=== PATIENT | female | born 1980 | race Caucasian/White ===

== ENCOUNTER 2017-09-07 05:34 | Emergency (ER) | payer OTHER ==
[~2017-09-07] VITALS: Ht 157.5 cm; Wt 75.7 kg
[2017-09-07 07:35] LABS: Basophils # (auto) 0.1 uL; Basophils % (auto) 0.9 % (0.0-2.0); Eosinophils # (auto) 0 uL; Hematocrit 40.3 % (36.0-46.0); Hemoglobin 13.7 g/dL (12.2-16.2); Lymphocytes # (auto) 0.7 uL; Lymphocytes % (auto) 6.2 % (10.0-50.0); Mean Corpuscular Hemoglobin 29.9 pg (28.0-32.0); Mean Corpuscular Hgb Conc. 33.9 g/dL (32.0-36.0); Mean Corpuscular Volume 88.3 fL (80.0-100.0); Monocytes # (auto) 0.1 uL; Monocytes % (auto) 1.2 % (0.0-12.0); Neutrophils # (auto) 9.8 uL; Neutrophils % (auto) 91.7 % (37.0-80.0); Platelet Count (auto) 319 10^3/uL (140-450); Red Blood Cells 4.56 10^6/uL (4.0-5.20); Red Cell Distribution Width 14.4 % (11.8-14.3); White Blood Cell 10.7 10^3/uL (4.4-10.8)
[2017-09-07 07:53] LABS: INR 0.95 (0.9-1.15); Partial Thromboplastin Time 25.6 sec (22.64-33.71); Prothrombin Time 10.4 sec (9.37-12.3)
[2017-09-07 07:57] LABS: Alanine Aminotransferase 18 U/L (13-56); Albumin 3.8 g/dL (3.4-5.0); Alkaline Phosphatase 76 U/L (45-117); Amylase 40 U/L (25-115); Anion Gap 10 (5-15); Aspartate Aminotransferase 14 U/L (15-37); BUN/Creatinine Ratio 17.3; Bilirubin, Total 0.5 mg/dL (0.2-1.0); Blood Urea Nitrogen 14 mg/dL (7-18); Calcium 8.7 mg/dL (8.5-10.1); Carbon Dioxide 20 mmol/L (21-32); Chloride 109 mmol/L (98-107); GFR African American 102 mL/min; GFR Non-African American 85 mL/min; Glucose 112 mg/dL (74-106); Lipase 74 U/L (73-393); Potassium 3.6 mmol/L (3.5-5.1); Sodium 139 mmol/L (136-145); Total Protein 8.3 g/dL (6.4-8.2)
[2017-09-07] MEDS ORDERED: MORPHINE SULFATE 8mg/ml INJ SDV IV ONE (08:45)
[2017-09-07] MEDS ORDERED: ONDANSETRON HCL 4 MG/2 ML VIAL IV ONE (08:45)
[2017-09-07 10:00] VITALS: BP 108/66
== END 2017-09-07 10:41 | disposition home or self-care (01) ==
LOC: ER 05:34
DX: K52.9 Noninfective gastroenteritis and colitis, unspecified (principal)
CPT/HCPCS: 36415; 74176; 80053; 82150; 83690; 84484; 85025; 85610; 85730; 96374; 96375; 99285; J2270; J2405